=== PATIENT | female | born 1980 | race American Indian/Alaskan Native ===

== ENCOUNTER 2016-08-16 23:30 | Outpatient (CLI) | payer SELFPAY ==
[2016-08-16 23:54] VITALS: BP 116/70
--- NOTE | 2016-08-17 08:09 | Ultrasound Report ---
ULTRASOUND OB LESS THAN 14 WEEKS FETUS History: well-being, vaginal bleeding. Findings: No comparison. Transabdominal imaging was performed. The uterus measures 13 x 7 x 9 cm. There are several hypoechoic uterine masses probably representing fibroids. An anterior wall mass measures up to 2.4 cm. A lower anterior wall mass measures up to 4.4 cm. A posterior wall mass measures up to 2.1 cm. An intrauterine is identified with heart rate measuring 159 beats per minute. The placenta is forming posteriorly. Amniotic fluid volume appears normal. [place]-rump length measures 38.3 mm which correlates with a 10 week, 5 day . Estimated due date 03/10/17. Both ovaries are visualized. The right ovary contains a 3.4 cm simple cyst. The left ovary is unremarkable. No pelvic fluid collection. Impression: Viable, single intrauterine as described. No acute process is noted. 3.4 cm right ovarian cyst. Uterine fibroid disease is suspected.
== END 2016-08-17 01:26 | disposition home or self-care (01) ==
LOC: TRG 23:30
PROVIDERS: ATTEND Obstetrics & Gynecology
DX: O09.521 Supervision of elderly multigravida, first trimester (principal); O34.81 Maternal care for other abnormalities of pelvic organs, first trimester; N83.291 Other ovarian cyst, right side; Z3A.10 10 weeks gestation of pregnancy
CPT/HCPCS: 76801

== ENCOUNTER 2016-10-31 03:40 | Outpatient (CLI) | payer MEDICAID, OTHER ==
[2016-10-31] MEDS ORDERED: LACTATED RINGERS 500 ML IV ONE (04:13)
== END 2016-10-31 04:59 | disposition home or self-care (01) ==
LOC: TRG 03:40
PROVIDERS: ATTEND Obstetrics & Gynecology Gynecology
DX: O24.419 Gestational diabetes mellitus in pregnancy, unspecified control (principal); Z3A.24 24 weeks gestation of pregnancy

== ENCOUNTER 2016-12-30 00:29 | Inpatient (IN) | payer MEDICAID ==
[2016-12-30] MEDS ORDERED: LACTATED RINGERS 1,000 ML ONE (01:06)
[2016-12-30] MEDS ORDERED: LACTATED RINGERS 1,000 ML IV ONE (01:18)
[2016-12-30] MEDS: BRETHINE SUB-Q SCH ×3 (01:32→02:30)
[2016-12-30 01:47] LABS: Bilirubin,Urine NEG (Negative); Blood,Urine NEG (Negative); Ketones,Urine NEG (Negative); Leukocyte Esterase,Urine NEG (Negative); Mucus,Urine FEW /HPF; Nitrite,Urine NEG (Negative); Protein,Urine <15 mg/dL mg/dL (Negative)
[2016-12-30] MEDS ORDERED: POLYCILLIN/NS 2 GM/100 ML 2 GM/100 ML BAG IV ONE (02:21)
[2016-12-30] MEDS ORDERED: MAGNESIUM SULFATE 4GM/100ML 4 GM/100 ML BAG IV ONE (02:23)
[2016-12-30 02:50] LABS: Hematocrit 30.7 % (30.3-42.9); Hemoglobin 10.4 gm/dl (10.1-14.3); Mean Corpuscular HGB Conc 34 % (30-34); Mean Corpuscular Hemoglobin 28 pg (28-32); Mean Corpuscular Volume 82 fl (79-97); Platelet Count 125 K/mm3 (140-440); Red Blood Count 3.77 M/mm3 (3.65-5.03); Red Cell Distribution Width 14.4 % (13.2-15.2); White Blood Count 9.3 K/mm3 (4.5-11.0)
[2016-12-30] MEDS ORDERED: MAGNESIUM SULFATE 40GM/1000ML 40 GM/1,000 ML BAG IV SCH (03:00)
[2016-12-30] MEDS ORDERED: LACTATED RINGERS 1,000 ML IV SCH ×2 (03:00→11:00)
[2016-12-30] MEDS ORDERED: CELESTONE SOLUSPAN IM SCH (03:00)
[2016-12-30] MEDS ORDERED: STADOL ONE (03:49)
[2016-12-30] MEDS ORDERED: STADOL IV PRN (04:00)
[2016-12-30] MEDS ORDERED: POLYCILLIN/NS 1 GM/50 ML 1 GM/50 ML BAG IV SCH (06:00)
--- NOTE | 2016-12-30 10:14 | History and Physical Report ---
History of Present Illness Date of examination: 12/30/16 Date of admission: 12/30/16 02:44 Chief complaint: Labor History of present illness: Pt is a 36yo BF EDC 03/10/17; EGA 30 3/7 weeks presents to L&D complaining of RUC's q 2-3 mins, that has been unresolved with SQ Terbutaline x3, or Magnesium sulfate. She denies ROM or bleeding. She received care at [facility] and has had 3 previous c sections. She refuses any more magnesium sulfate for tocolysis, and thus will be delivered by Repeat C Section since she has cervical change. Past History Past Medical History: no pertinent history Past Surgical History: section (x3) Family/Genetic History: none Social history: no significant social history, single - Obstetrical History Expected Date of Delivery: 03/10/17 Actual Gestation: 30 Week(s) 0 Day(s) : 11 Medications and Allergies Allergies Allergy/AdvReac Type Severity Reaction Status Date / Time No Known Allergies Allergy Verified 12/30/16 10:27 Home Medications Medication Instructions Recorded Confirmed Last Taken Type Amoxicillin [Amoxicillin TAB] 875 mg PO BID #20 tablet 11/05/14 Unknown Rx Ciprofloxacin/Hydrocortisone 3 drop OT BID 7 Days 11/05/14 Unknown Rx [Ciprofloxacin HC OTIC] Ibuprofen [Motrin 600 MG tab] 600 mg PO Q8H PRN #20 tablet 11/05/14 Unknown Rx traMADol [Ultram 50 MG tab] 50 mg PO Q6HR PRN #14 tablet 11/05/14 Unknown Rx Ferrous Sulfate [Feosol 325 MG tab] 325 mg PO BID #60 tablet 12/30/16 Unknown Rx HYDROcodone/APAP 5-325 [[place] 1 each PO Q6HR PRN #30 tablet 12/30/16 Unknown Rx 5/325] Ibuprofen [Motrin] 800 mg PO Q8HR PRN #30 tablet 12/30/16 Unknown Rx Vit W-Ca,Fe,FA(<1 mg) 1 each PO DAILY #30 tablet 12/30/16 Unknown Rx [ Vitamins] Active Meds: Active Medications Betamethasone Acet/Betameth SodPhos ([place] Soluspan) 12 mg IM Q24H GERALDINE Stop: 12/31/16 03:01 Last Admin: 12/30/16 03:12 Dose: 12 mg Butorphanol Tartrate (Stadol) 2 mg IV Q2H PRN PRN Reason: Labor Pain Lactated Ringer's (Lactated Ringers) 1,000 mls @ 125 mls/hr IV DIRECT GERALDINE Magnesium Sulfate (Magnesium Sulfate 40gm/1000ml) 40 gm in 1,000 mls @ 50 mls/ hr IV DIRECT GERALDINE PRN Reason: 2 GM/HR Ampicillin Sodium (Polycillin/Ns 1 Gm/50 Ml) 1 gm in 50 mls @ 100 mls/hr IV Q4HR GERALDINE PRN Reason: Protocol Multivitamins/Iron/Calcium ( Vitamin) 1 each PO QDAY [facility] Terbutaline Sulfate (Brethine) 0.25 mg SUB-Q Q20MIN GERALDINE Stop: 01/01/17 02:01 Last Admin: 12/30/16 02:30 Dose: 0.25 mg Review of Systems All systems: negative - Vital Signs Vital signs: Vital Signs Pulse BP 92 H 127/70 12/30/16 00:59 12/30/16 00:59 Temp Pulse Resp BP Pulse Ox 97.6 F 89 20 110/68 99 12/30/16 09:01 12/30/16 09:52 12/30/16 09:01 12/30/16 09:01 12/30/16 09:52 - Physical Exam Breasts: Positive: deferred Cardiovascular: Regular rate Lungs: Positive: Clear to auscultation Abdomen: Positive: normal appearance, soft Genitourinary (Female): Positive: normal external genitalia Uterus: Positive: enlarged Extremities: Positive: normal - Obstetrical FHR: category 2 Uterine Contraction Monitor Mode: External Cervical Dilatation: 2.5 Cervical Effacement Percentage: 100 station: -2 Uterine Contraction Pattern: Regular Uterine Tone Measurement Phase: Contraction Uterine Contraction Intensity: Moderate Results Result Diagrams: 12/30/16 01:16 Abnormal lab results 12/30/16 Range/Units 01:16 Plt Count 125 L (140-440) K/mm3 All other labs normal. Assessment and Plan - Patient Problems (1) 30 weeks gestation of Onset Date: 12/30/16 Current Visit: Yes Status: Acute Plan to address problem: A: IUP @ 30 3/7 weeks in labor Labor Previous C Section x 3 P: Admit to L&D for repeat C Section Obtain records (2) contractions Onset Date: 12/30/16 Current Visit: Yes Status: Acute (3) Previous section complicating Onset Date: 12/30/16 Current Visit: Yes Status: Acute
--- NOTE | 2016-12-30 10:15 | Anesthesia Consultation ---
Anesthesia Consult and Med Hx Date of service: 12/30/16 - Airway Anesthetic Teeth Evaluation: Good ROM Head & Neck: Adequate Mental/Hyoid Distance: Adequate Mallampati Class: Class II Intubation Access Assessment: Probably Good - Pulmonary Exam CTA: Yes - Cardiac Exam Cardiac Exam: RRR - Pre-Operative Health Status ASA Pre-Surgery Classification: ASA2 Proposed Anesthetic Plan: Spinal - Pulmonary Hx Asthma: No COPD: No Hx Pneumonia: No - Cardiovascular System Hx Hypertension: No - Central Nervous System Hx Seizures: No Hx Psychiatric Problems: Yes - Endocrine Hx Renal Disease: No Hx End Stage Renal Disease: No Hx Hypothyroidism: No Hx Hyperthyroidism: No - Hematic Hx Anemia: No Hx Sickle Cell Disease: No - Other Systems Hx Alcohol Use: No
--- NOTE | 2016-12-30 10:15 | Anesthesia Day of Surgery ---
Anesthesia Day of Surgery - Day of Surgery Patient Examined: Yes Patient H&P Reviewed: Yes Patient is NPO: Yes
[2016-12-30] MEDS ORDERED: MORPHINE ONE (10:19)
[2016-12-30] MEDS ORDERED: ZOFRAN ONE (10:46)
[2016-12-30] MEDS ORDERED: ePHEDrine SULFATE ONE (10:57)
[2016-12-30] MEDS ORDERED: REGLAN IV NR (11:00)
[2016-12-30] MEDS ORDERED: BICITRA PO NR (11:00)
[2016-12-30] MEDS ORDERED: PITOCin/NS 20 UNIT/1000ML DRIP 20 UNITS/1,000 ML BAG IV SCH ×2 (11:00→12:00)
[2016-12-30] MEDS ORDERED: PEPCID IV NR (11:00)
[2016-12-30] MEDS ORDERED: ANCEF/STERILE WATER 2 GM/20 ML 2 GM/20 ML SYRINGE IV NR (11:00)
[2016-12-30] MEDS ORDERED: NACL 0.9% IR ONE (11:34)
[2016-12-30] MEDS ORDERED: WATER FOR IRRIG STERILE IR ONE (11:34)
--- NOTE | 2016-12-30 11:50 | Operative Report ---
Operative Report Operative Report: Date of procedure: 12/30/2016 Pre-operative diagnosis: 1. Intrauterine at 30-0/7 weeks 2. labor 3. Previous section 3 Post-operative diagnosis: Same Procedure name(s): Repeat low transverse section Surgeon: Jefferson Melchor MD Steward/Stewardess Bath: None Anesthesia: Spinal anesthesia by Dr. Damaris King EBL: 500 MLS Findings: A 1420 g female infant Apgars 4 at 1 minute 8 at 5 minutes. Clear amniotic fluid. Normal uterus with lower uterine adhesions. Normal tubes and ovaries bilaterally. Procedure: After the patient was prepped and draped in usual sterile fashion, and after satisfactory level of epidural anesthesia was obtained, the skin knife was used to make a transverse skin incision through the previous skin scars. The incision was excised down to layer of the fascia, which was nicked in the midline and extended laterally using the Bovie cautery. The rectus muscles were dissected off the rectus fascia both superiorly and inferiorly. The rectus bellies in the midline, and the peritoneum was entered under direct visualization. The peritoneal incision was extended superiorly and inferiorly. A bladder flap was created and the bladder blade was then placed. The uterus was scored in a curvilinear linear fashion, entered in the midline revealing clear amniotic fluid. The infant's head was delivered onto the surgical field, and the oropharynx and nasopharynx were bulb suctioned. The rest of the infant's body was delivered, cord was doubly clamped and cut and the infant was handed to the waiting respiratory team. The placenta was manually removed from the uterus, and the uterus removed from its normal anatomical position. After gentle uterine lavage, the incision was inspected and found to be without extensions. It was then closed in 2 layers using 0 Vicryl suture in a running interlocking fashion, the second layer imbricating the first. After good hemostasis was achieved, copious amounts or irrigation was performed, and the gutters were suctioned free of blood and blood clots. The Tisseel sealant was sprayed across the uterine incision. The uterus was then returned to its normal anatomical position, and after excellent hemostasis assured, the peritoneum was reapproximated using 3-0 Vicryl suture in a running interlocking fashion, and then the rectus muscles were reapproximated using 3-0 Vicryl suture in a [id number] configuration. The fascia was then reapproximated using 0 Vicryl suture in running interlocking fashion. The subcutaneous layer was made hemostatic using Bovie cautery, the Tisseel sealant was sprayed across the fascial incision and the skin edges reapproximated using nicolas. Patient was wretching during the entire procedure, but tolerated the procedure well was transported to recovery in stable condition.
[2016-12-30] MEDS ORDERED: MYLICON PO PRN (11:52)
[2016-12-30] MEDS ORDERED: ZOFRAN IV PRN (11:52)
[2016-12-30] MEDS ORDERED: NARCAN 0.4 MG/1 ML IV PRN (11:52)
[2016-12-30] MEDS ORDERED: TYLENOL PO PRN (11:52)
[2016-12-30] MEDS ORDERED: PHENERGAN PR PRN (11:52)
[2016-12-30] MEDS ORDERED: TORADOL IV PRN (11:52)
[2016-12-30] MEDS ORDERED: TUCKS PAD TP PRN (11:52)
[2016-12-30] MEDS ORDERED: SENOKOT PO PRN (11:52)
[2016-12-30] MEDS ORDERED: LANSINOH TP PRN (11:52)
[2016-12-30] MEDS ORDERED: MILK OF MAGNESIA PO PRN (11:52)
[2016-12-30] MEDS ORDERED: NORCO 5/325 PO PRN (11:52)
[2016-12-30] MEDS ORDERED: SODIUM CHLORIDE FLUSH SYRINGE 10 ML IV NR ×2 (12:00→13:00)
--- NOTE | 2016-12-30 12:08 | Post Anesthesia Evaluation ---
- Post Anesthesia Evaluation Patient Participated: Yes Airway Patent: Yes Stable Respiratory Function: Yes Nausea/Vomiting: No Temp > 96.8F: Yes Pain Manageable: Yes Adequeate Hydration: Yes Anesthesia Complications: No Block Receding Appropriately: Yes Patient on Ventilator: No
[2016-12-30 16:01] LABS: HIVR-1/2 Ab Non React (Non React)
[2016-12-30 16:02] LABS: HIV-1 Antigen p24 Non React (Non React)
[2016-12-30] MEDS: D5LR 1,000 ML IV SCH (16:19)
[2016-12-30] MEDS: ANCEF/NS 1 GM/50 ML 1 GM/50 ML BAG IV SCH (18:49)
[2016-12-31 00:31] LABS: Hematocrit 29.4 % (30.3-42.9); Hemoglobin 9.4 gm/dl (10.1-14.3)
[2016-12-31] MEDS: D5LR 1,000 ML IV SCH (02:53)
[2016-12-31] MEDS: ANCEF/NS 1 GM/50 ML 1 GM/50 ML BAG IV SCH (03:11)
[2016-12-31] MEDS: PERCOCET 5/325 PO PRN ×3 (08:13→20:34)
[2016-12-31] MEDS: PRENATAL VITAMIN PO SCH (10:36)
[2016-12-31] MEDS: FEOSOL PO SCH (10:36)
[2016-12-31] MEDS ORDERED: BOOSTRIX IM ONE (11:53)
[2016-12-31] MEDS ORDERED: M-M-R II VACCINE SUB-Q ONE (11:53)
--- NOTE | 2016-12-31 12:28 | Progress Note ---
Assessment and Plan A: /postop day 1 S/P LTCS delivery of liveborn female P: Encourage ambulation; advance diet as tolerated. Subjective - Subjective Date of service: 12/31/16 Principal diagnosis: /postop day 1 S/P LTCS Interval history: Doing well. Pt. reports she is voiding without difficulty. Passing gas. Denies headache, chest pain, shortness of breath, abdominal pain, leg pain, heavy vaginal bleeding, or symptoms of depression. Patient reports: appetite normal, voiding normally, pain well controlled, ambulating normally : doing well, in NICU Objective - Vital Signs Latest vital signs: Vital Signs Temp Pulse Resp BP Pulse Ox 12/31/16 08:49 98.5 F 76 18 94/54 12/31/16 04:20 98.1 F 89 18 94/51 12/31/16 00:45 98.3 F 79 18 107/52 12/30/16 21:00 97.9 F 70 18 96/58 12/30/16 18:00 97.5 F L 74 18 112/63 12/30/16 17:23 97.4 F L 81 20 105/59 12/30/16 16:32 94.4 F L 81 20 105/59 12/30/16 16:17 97.5 F L 81 20 105/59 12/30/16 15:43 97.3 F L 81 20 105/59 12/30/16 15:21 97.4 F L 80 20 104/61 12/30/16 14:17 97.5 F L 12/30/16 13:56 97.5 F L 12/30/16 13:10 62 12 100/54 100 12/30/16 13:00 69 14 109/63 100 12/30/16 12:50 77 13 105/60 99 12/30/16 12:40 94.6 F L 78 12 97/53 100 12/30/16 12:30 75 13 114/74 95 Intake and Output 12/30/16 12/31/16 12/31/16 22:59 06:59 14:59 Intake Total 50 1360 Output Total 50 700 400 Balance 0 660 -400 Intake: IV 50 1000 ANCEF/NS 1 GM/50 ML 1 gm 50 In 50 ml @ 100 mls/hr IV Q8H EGRALDINE Rx#:[id number] D5lr 1,000 ml @ 125 mls/ 1000 hr IV DIRECT [facility] Rx#: [id number] Oral 120 Intake, Free Water 240 Output: Urine 700 400 Indwelling Catheter 600 Void 100 400 Emesis 50 Other: Total, Intake Amount 120 Total, Output Amount 50 100 400 - Exam Breasts: Present: deferred Cardiovascular: Present: Regular rate, No murmurs Lungs: Present: Clear to auscultation Abdomen: Present: normal appearance, soft, normal bowel sounds. Absent: distention, tenderness, guarding Uterus: Present: normal, firm, fundal height below umbilicus Extremities: Present: normal Incision: Present: normal, intact (Dressing clean, dry, intact) - Labs Labs: Abnormal lab results 12/31/16 Range/Units 00:02 Hgb 9.4 L (10.1-14.3) gm/dl Hct 29.4 L (30.3-42.9) %
[2016-12-31] MEDS: MOTRIN PO PRN ×2 (15:21→20:33)
[2017-01-01] MEDS: PERCOCET 5/325 PO PRN ×2 (06:45→14:20)
--- NOTE | 2017-01-01 09:11 | Progress Note ---
Assessment and Plan A; POD # 2 -stable P; Discharge home in am Subjective - Subjective Date of service: 01/01/17 Principal diagnosis: /postop day 2 S/P LTCS Patient reports: appetite normal Leon: doing well Objective - Vital Signs Latest vital signs: Vital Signs Temp Pulse Resp BP 01/01/17 08:33 97.8 F 86 20 102/60 01/01/17 06:45 18 01/01/17 04:40 98.7 F 82 18 109/67 01/01/17 00:35 98.7 F 83 18 106/57 12/31/16 20:34 18 12/31/16 20:33 18 12/31/16 17:20 98.1 F 81 18 104/58 12/31/16 12:28 99.1 F 83 18 115/62 Intake and Output 12/31/16 01/01/17 01/01/17 22:59 06:59 14:59 Intake Total 600 460 Output Total 200 Balance 400 460 Intake: Oral 360 Intake, Free Water 240 460 Output: Urine 200 Void 200 Other: Total, Intake Amount 240 Total, Output Amount 200 # Voids Void 1 1 - Exam Breasts: Present: deferred Cardiovascular: Present: Regular rate Lungs: Present: Clear to auscultation Abdomen: Present: soft Uterus: Present: fundal height below umbilicus Deep Tendon Reflex Grade: Normal +2
--- NOTE | 2017-01-01 09:12 | Discharge Summary ---
Providers - Providers Date of Admission: 12/30/16 02:44 Date of discharge: 01/02/17 Attending physician: AMANDA BENDER MD Primary care physician: AMANDA BENDER MD Hospitalization Reason for admission: active labor, labor Delivery: Procedure: section complications: none Discharge diagnosis: delivery baby: female Condition at discharge: Good Disposition: DC-01 TO HOME OR SELFCARE Plan - Discharge Medications Prescriptions: Ferrous Sulfate [Feosol 325 MG tab] 325 mg PO BID #60 tablet HYDROcodone/APAP 5-325 [[place] 5/325] 1 each PO Q6HR PRN #30 tablet PRN Reason: Pain Ibuprofen [Motrin] 800 mg PO Q8HR PRN #30 tablet PRN Reason: Mild Pain Unrelieved By Apap Vit W-Ca,Fe,FA(<1 mg) [ Vitamins] 1 each PO DAILY #30 tablet - Provider Discharge Summary Activity: routine, no sex for 6 weeks, no strenuous exercise Diet: routine Instructions: routine Additional instructions: [] Smoking cessation referral if applicable(refer to patient education folder for contact #) [] Refer to [facility] Booklet Call your doctor immediately for: * Fever > 100.5 * Heavy vaginal bleeding ( >1 pad per hour) * Severe persistent headache * Shortness of breath * Reddened, hot, painful area to leg or breast * Drainage or odor from incision. * Keep incision clean and dry at all times and follow doctor's instructions regarding bathing/showering - Follow up plan Follow up: [facility] [Provider Group] - 14 Days
[2017-01-01] MEDS: FEOSOL PO SCH (12:56)
[2017-01-01] MEDS: MOTRIN PO PRN (12:57)
[2017-01-01] MEDS: PRENATAL VITAMIN PO SCH (12:57)
[2017-01-01 14:34] VITALS: BP 114/69
== END 2017-01-01 14:30 | disposition home or self-care (01) | DRG 765 ==
LOC: TRG 00:29 → OBSVTOIN 02:44 → LD 02:44 → TRG 02:44 → LD 03:04 → OB 18:24
PROVIDERS: ADMIT Obstetrics & Gynecology; ATTEND Obstetrics & Gynecology
PROC: 10D00Z1 Extraction of Products of Conception, Low, Open Approach (ICD-10-PCS; principal; 2016-12-30)
DX: O34.211 Maternal care for low transverse scar from previous cesarean delivery (principal); O60.14X0 Preterm labor third trimester with preterm delivery third trimester, not applicable or unspecified; Z3A.30 30 weeks gestation of pregnancy; Z37.0 Single live birth
CPT/HCPCS: 36415; 81001; 82731; 85014; 85018; 85027; 86592; 86706; 86762; 86850; 86900; 86901; 87806; 88307; 99211; A6250; G0463; J0290; J0595; J0690; J0702; J2270; J2405; J2590; J2765; J3105; J3475; J7120; J7121